=== PATIENT | male | born 1985 | race Hispanic/Latino ===

== ENCOUNTER 2018-06-28 09:12 | Emergency (ER) | payer SELFPAY ==
[2018-06-28] MEDS ORDERED: NARCAN 2 MG/2 ML IV ONE (09:15)
[2018-06-28] MEDS ORDERED: ZOFRAN ONE (09:26)
[2018-06-28] MEDS ORDERED: NARCAN 2 MG/2 ML ONE ×2 (09:26)
--- NOTE | 2018-06-28 09:34 | Emergency Department Report ---
History of Present Illness - General Stated Complaint: AMS Time Seen by Provider: 06/28/18 09:24 Source: patient, EMS - History of Present Illness Initial Comments: Patient is 33 years old male in known to this provider. Patient brought to the ER via EMS after patient was found at a gas station with his altered mental status. EMS stated that People around the gas station so the patient using a blue substance to inject himself. Upon arrival to the ER patient is old, but he is moving all his extremities. Breathing approximately 14 breaths per minute with oxygen saturation of 100% on room air. Complaint: accidental overdose - Related Data Allergies Allergy/AdvReac Type Severity Reaction Status Date / Time Unable to Assess Allergy Unverified 06/28/18 10:04 ED Review of Systems ROS: Stated complaint: AMS Other details as noted in HPI Comment: All other systems reviewed and negative Constitutional: denies: chills, fever Respiratory: denies: cough, orthopnea, shortness of breath, SOB with exertion, SOB at rest, wheezing Cardiovascular: denies: chest pain, palpitations, dyspnea on exertion, orthopnea Gastrointestinal: denies: abdominal pain, nausea, vomiting, diarrhea, constipation, hematemesis Neurological: denies: headache, weakness, numbness, paresthesias, confusion, abnormal gait, vertigo, other ED Physical Exam - General Limitations: Altered Mental Status General appearance: obtunded - Head Head exam: Present: atraumatic, normocephalic, normal inspection - Eye Eye exam: Present: normal appearance Pupils: Present: miosis, other (2 mm and reactive to light) - ENT ENT exam: Present: normal exam, normal orophraynx, mucous membranes moist - Neck Neck exam: Present: normal inspection, full ROM. Absent: tenderness, meningismus, lymphadenopathy, thyromegaly - Respiratory Respiratory exam: Present: normal lung sounds bilaterally. Absent: respiratory distress, wheezes, rales, rhonchi, chest wall tenderness, accessory muscle use, decreased breath sounds, prolonged expiratory - Cardiovascular Cardiovascular Exam: Present: regular rate, normal rhythm, normal heart sounds - GI/Abdominal GI/Abdominal exam: Present: soft, normal bowel sounds. Absent: distended, tenderness, guarding, rebound, rigid, organomegaly, mass, bruit, pulsatile mass , hernia - Extremities Exam Extremities exam: Present: normal inspection, full ROM, normal capillary refill - Back Exam Back exam: Present: normal inspection, full ROM. Absent: tenderness, CVA tenderness (R), CVA tenderness (L), muscle spasm, paraspinal tenderness, vertebral tenderness - Neurological Exam Neurological exam: Present: alert, oriented X3, CN II-XII intact, normal gait, reflexes normal - Skin Skin exam: Present: warm, intact, normal color ED Course Vital Signs 06/28/18 06/28/18 06/28/18 09:54 11:15 11:30 Pulse Rate 79 81 Respiratory 10 L 16 16 Rate Blood Pressure 129/85 Blood Pressure 129/85 126/81 [Left] O2 Sat by Pulse 100 100 Oximetry 06/28/18 06/28/18 13:00 14:39 Pulse Rate 84 85 Respiratory 16 16 Rate Blood Pressure Blood Pressure 134/89 131/88 [Left] O2 Sat by Pulse 100 100 Oximetry ED Medical Decision Making - Lab Data Result diagrams: 06/28/18 12:14 06/28/18 12:14 - Medical Decision Making Patient is awake, alert and oriented 3 in no acute distress. Patient stated that he does not remember how did he got here that he remembered that he was at a gas station. Patient admitted that he used methamphetamine before he came. She denied any suicidal ideation or attempts. He stated that he just wanted to get high. Patient is asking for something to eat. Patient urine drug screen is positive for meth. I counseled the patient on substance abuse and I offered him counseling the patient declined. Patient will be discharged home in a stable clinical condition. Critical care attestation.: If time is entered above; I have spent that time in minutes in the direct care of this critically ill patient, excluding procedure time. ED Disposition Clinical Impression: Altered mental status, Methamphetamine abuse Disposition: DC-01 TO HOME OR SELFCARE Is pt being admited?: No Condition: Stable Instructions: Methamphetamine Abuse (ED) Referrals: PRIMARY CARE, [Primary Care Provider] - 3-5 Days
[2018-06-28 11:03] LABS: Benzodiazepines Screen,Urine PRESUMPTIVE NEGATIVE; Cannabinoid Screen,Urine PRESUMPTIVE NEGATIVE; Cocaine Screen,Urine PRESUMPTIVE NEGATIVE; Methadone Screen,Urine PRESUMPTIVE NEGATIVE; Opiate Screen,Urine PRESUMPTIVE NEGATIVE
[2018-06-28 11:17] LABS: Amphetamine Screen,Urine PRESUMPTIVE POSITIVE
[2018-06-28 12:27] LABS: Basophils # (Auto) 0.2 K/mm3 (0.0-0.1); Basophils % (Auto) 1.3 % (0.0-1.8); Eosinophils # (Auto) 0.2 K/mm3 (0.0-0.4); Eosinophils % (Auto) 1.5 % (0.0-4.3); Hematocrit 48.2 % (35.5-45.6); Hemoglobin 16.5 gm/dl (11.8-15.2); Lymphocytes # (Auto) 2.2 K/mm3 (1.2-5.4); Lymphocytes % (Auto) 17.9 % (13.4-35.0); Mean Corpuscular HGB Conc 34 % (32-34); Mean Corpuscular Hemoglobin 31 pg (28-32); Mean Corpuscular Volume 90 fl (84-94); Monocytes # (Auto) 0.8 K/mm3 (0.0-0.8); Monocytes % (Auto) 6.3 % (0.0-7.3); Platelet Count 328 K/mm3 (140-440); Red Blood Count 5.36 M/mm3 (3.65-5.03); Red Cell Distribution Width 13.2 % (13.2-15.2)
[2018-06-28 12:45] LABS: Alanine Aminotransferase 13 units/L (7-56); Albumin 3.4 g/dL (3.9-5); BUN/Creatinine Ratio 14; Blood Urea Nitrogen 10 mg/dL (9-20); Calcium 9.2 mg/dL (8.4-10.2); Hemolysis Index 3
[2018-06-28 14:41] VITALS: BP 131/88
[2018-06-28] MEDS ORDERED: ZOFRAN IV ONE (16:51)
== END 2018-06-28 17:17 | disposition home or self-care (01) ==
LOC: ED 09:12
DX: R41.82 Altered mental status, unspecified (principal); F15.10 Other stimulant abuse, uncomplicated
CPT/HCPCS: 36415; 80053; 80307; 82962; 85025; 93005; 93010; 96374; 99284; G0480; J2310; J2405; 80320